=== PATIENT | male | born 1975 | race African-American/Black ===

== ENCOUNTER 2018-07-18 14:36 | Emergency (ER) | payer OTHER ==
[~2018-07-18] VITALS: Ht 157.5 cm; Wt 59.0 kg
[2018-07-18] MEDS ORDERED: Ketorolac 30mg Inj IV ONE (14:45)
[2018-07-18] MEDS ORDERED: Tetanus/Diptheria/Pertussis IM ONE (14:45)
[2018-07-18] MEDS ORDERED: Neosporin Oint Ud Pkt TOP ONE (14:45)
--- NOTE | 2018-07-18 14:51 | Emergency Room Report ---
History of Present Illness General Chief Complaint: Pain Source: Patient, EMS Present Illness HPI Patient had a syncopal episode yesterday. Apparently there was no seizure activity. He hit his head in the forehead. He states that friends of his had to carry him upstairs. He initially denied alcohol but then admitted to drinking alcohol. He is not sure when his last tetanus shot was. He's complaining about pain in his neck on the right-hand side and also in his head. He's been taking ibuprofen. He denies pain in the rest of his body. The patient complains also of having intermittent swelling that he has seen his doctors about. This can occur in his tongue or his right eye. It doesn't seem to be related to exposure to substances or foods that he's ingested. There is no current diagnosis for the swelling. He denies having swelling at this time. There is some swelling at the top of his head where he hit his head yesterday. He denies chest pain, palpitations, swelling of his ankles or calf pain. He also denies nausea vomiting diarrhea dysuria. Allergies: Coded Allergies: No Known Allergies (Unverified , 07/18/18) Patient History Past Medical History: see triage record Social History: Reports: smoking, alcohol use Social History Narrative from home Reviewed Nursing Documentation: PMH: Agreed; PSxH: Agreed Review of Systems All Other Systems: negative except mentioned in HPI Physical Exam Vital Signs Date Time Temp Pulse Resp B/P (MAP) Pulse Ox O2 Delivery O2 Flow Rate FiO2 07/18/18 14:30 98.8 86 16 113/71 (85) 99 Sp02 EP Interpretation: reviewed, normal General Appearance: well appearing, no apparent distress, GCS 15 Head: normocephalic, other - Abrasion and hematoma forehead Eyes: bilateral eye normal inspection, bilateral eye PERRL, bilateral eye EOMI ENT: moist mucus membranes - No lingual macerations o Neck: supple Respiratory: chest non-tender, lungs clear, normal breath sounds Cardiovascular #1: regular rate, rhythm Cardiovascular #2: 2+ radial (R) Gastrointestinal: normal inspection, normal bowel sounds, non tender, no mass, non-distended Musculoskeletal: back normal, normal range of motion, no calf tenderness Neurologic: alert, oriented x3, shaft tender III-XII nml as tested, motor strength/tone normal, DTRs symmetric, sensory intact, cerebellar normal, normal gait, speech normal Psychiatric: mood/affect normal Skin: warm/dry, abrasions - Forehead, hematoma - Forehead Medical Decision Making Diagnostic Impression: Primary Impression: Syncope Qualified Codes: R55 - Syncope and collapse Additional Impressions: Head trauma Qualified Codes: S09.90XA - Unspecified injury of head, initial encounter Neck sprain Qualified Codes: S13.9XXA - Sprain of joints and ligaments of unspecified parts of neck, initial encounter Hypokalemia ER Course Patient presents post syncopal episode with head trauma possibly related to alcohol yesterday. Differential includes acute myocardial infarction, arrhythmia, alcohol abuse, electrolyte imbalance, head bleed, head contusion, neck strain, neck fracture amongst others. Patient will be evaluated with EKG, chest x-ray and CT of the head and neck along with labs. The patient will be treated with IV Toradol, tetanus and Neosporin. EKG without injury. Chest x-ray normal. CT head and neck without acute injury. Labs significant for positive blood alcohol. Blood glucose 199. Potassium 3.0. Patient improved with Toradol. Potassium given orally. Discussed with patient contribution of alcohol. Also discussed treatment plan and the need for follow-up with his own doctor. Patient stable for outpatient observation and treatment. Labs Test 07/18/18 15:15 07/18/18 15:40 White Blood Count 3.1 K/UL (4.8-10.8) Red Blood Count 4.77 M/UL (4.70-6.10) Hemoglobin 13.0 G/DL (14.2-18.0) Hematocrit 39.5 % (42.0-52.0) Mean Corpuscular Volume 83 FL (80-99) Mean Corpuscular Hemoglobin 27.2 PG (27.0-31.0) Mean Corpuscular Hemoglobin Concent 32.8 G/DL (32.0-36.0) Red Cell Distribution Width 14.3 % (11.6-14.8) Platelet Count 291 K/UL (150-450) Mean Platelet Volume 4.9 FL (6.5-10.1) Neutrophils (%) (Auto) % (45.0-75.0) Lymphocytes (%) (Auto) % (20.0-45.0) Monocytes (%) (Auto) % (1.0-10.0) Eosinophils (%) (Auto) % (0.0-3.0) Basophils (%) (Auto) % (0.0-2.0) Differential Total Cells Counted 100 Neutrophils % (Manual) 53 % (45-75) Lymphocytes % (Manual) 32 % (20-45) Monocytes % (Manual) 8 % (1-10) Eosinophils % (Manual) 5 % (0-3) Basophils % (Manual) 2 % (0-2) Band Neutrophils 0 % (0-8) Platelet Estimate Adequate Platelet Morphology Normal Red Blood Cell Morphology Normal Prothrombin Time 9.7 SEC (9.30-11.50) Prothromb Time International Ratio 0.9 (0.9-1.1) Activated Partial Thromboplast Time 25 SEC (23-33) Sodium Level 147 MMOL/L (136-145) Potassium Level 3.0 MMOL/L (3.5-5.1) Chloride Level 103 MMOL/L (98-107) Carbon Dioxide Level 30 MMOL/L (21-32) Anion Gap 14 mmol/L (5-15) Blood Urea Nitrogen 11 mg/dL (7-18) Creatinine 1.0 MG/DL (0.55-1.30) Estimat Glomerular Filtration Rate > 60 mL/min (>60) Glucose Level 199 MG/DL (74-106) Calcium Level 8.7 MG/DL (8.5-10.1) Total Bilirubin 0.5 MG/DL (0.2-1.0) Aspartate Amino Transf (AST/SGOT) 96 U/L (15-37) Alanine Aminotransferase (ALT/SGPT) 65 U/L (12-78) Alkaline Phosphatase 92 U/L (46-116) Total Protein 7.4 G/DL (6.4-8.2) Albumin 3.9 G/DL (3.4-5.0) Globulin 3.5 g/dL Albumin/Globulin Ratio 1.1 (1.0-2.7) Serum Alcohol 209 mg/dL Urine Color Yellow Urine Appearance Clear Urine pH 6 (4.5-8.0) Urine Specific [place] 1.020 (1.005-1.035) Urine Protein 2+ (NEGATIVE) Urine Glucose (UA) 2+ (NEGATIVE) Urine Ketones 1+ (NEGATIVE) Urine Blood Negative (NEGATIVE) Urine Nitrite Negative (NEGATIVE) Urine Bilirubin Negative (NEGATIVE) Urine Urobilinogen 8 MG/DL (0.0-1.0) Urine Leukocyte Esterase Negative (NEGATIVE) Urine RBC 0-2 /HPF (0 - 0) Urine WBC 2-4 /HPF (0 - 0) Urine Squamous Epithelial Cells None /LPF (NONE/OCC) Urine Bacteria Few /HPF (NONE) Urine Opiates Screen Negative (NEGATIVE) Urine Barbiturates Screen Negative (NEGATIVE) Phencyclidine (PCP) Screen Negative (NEGATIVE) Urine Amphetamines Screen Negative (NEGATIVE) Urine Benzodiazepines Screen Negative (NEGATIVE) Urine Cocaine Screen Negative (NEGATIVE) Urine Marijuana (THC) Screen Negative (NEGATIVE) EKG Diagnostic Results Rate: normal ST Segments: no acute changes - Positive U waves Rhythm Strip Diag. Results EP Interpretation: yes Rhythm: NSR, no PVC's, no ectopy Last Vital Signs Date Time Temp Pulse Resp B/P (MAP) Pulse Ox O2 Delivery O2 Flow Rate FiO2 07/18/18 17:04 98.8 81 16 126/81 99 Room Air Status: improved Disposition: HOME, SELF-CARE Condition: Improved Scripts Bacitracin (Bacitracin) 28.4 Gm Oint...g. 1 APPLIC TOPIC BID, #20 GM Prov: Adria Smith MD 07/18/18 Adria Smith MD Jul 18, 2018 14:51
[2018-07-18 15:37] LABS: HEMATOCRIT 39.5 % (42.0-52.0); MEAN CORPUSCULAR VOLUME 83 FL (80-99); PLATELET COUNT 291 K/UL (150-450); RED BLOOD COUNT 4.77 M/UL (4.70-6.10); RED CELL DISTRIBUTION WIDTH 14.3 % (11.6-14.8); WHITE BLOOD COUNT 3.1 K/UL (4.8-10.8)
--- NOTE | 2018-07-18 15:39 | Diagnostic Imaging Report ---
EXAM: CT Head Without Intravenous Contrast CLINICAL HISTORY: TRAUMA TECHNIQUE: Axial computed tomography images of the head/brain without intravenous contrast. CTDI is 70.38 mGy and DLP is 1397 mGy-cm. One or more of the following dose reduction techniques were used: automated exposure control, adjustment of the mA and/or kV according to patient size, use of iterative reconstruction technique. COMPARISON: No relevant prior studies available. FINDINGS: Brain: No hemorrhage. No edema. Ventricles: No ventriculomegaly. Bones/joints: No acute fracture. Soft tissues: Unremarkable. Sinuses: No acute sinusitis. Mastoid air cells: No mastoid effusion. IMPRESSION: No acute intracranial process.
[2018-07-18 15:47] LABS: INR 0.9 (0.9-1.1)
[2018-07-18 15:51] LABS: ALANINE AMINOTRANSFERASE 65 U/L (12-78); ALBUMIN 3.9 G/DL (3.4-5.0); ALBUMIN/GLOBULIN RATIO 1.1 (1.0-2.7); ALKALINE PHOSPHATASE 92 U/L (46-116); ANION GAP 14 mmol/L (5-15); ASPARTATE AMINO TRANSFERASE 96 U/L (15-37); BILIRUBIN,TOTAL 0.5 MG/DL (0.2-1.0); BLOOD UREA NITROGEN 11 mg/dL (7-18); CALCIUM 8.7 MG/DL (8.5-10.1); CARBON DIOXIDE 30 MMOL/L (21-32); CHLORIDE 103 MMOL/L (98-107); SODIUM 147 MMOL/L (136-145)
--- NOTE | 2018-07-18 15:55 | NUR ---
ED Nurse Note: pt. was [place] from police station with c/o multiple falls with head injury,general body pain, possible ETOH
[2018-07-18 15:59] LABS: APPEARANCE,URINE CLEAR; BILIRUBIN, URINE NEGATIVE (NEGATIVE); GLUCOSE, URINE (UA) 2+ (NEGATIVE); KETONES,URINE 1+ (NEGATIVE); LEUKOCYTE ESTERASE ,URINE NEGATIVE (NEGATIVE); NITRITE,URINE NEGATIVE (NEGATIVE); PH,URINE 6 (4.5-8.0); PROTEIN,URINE 2+ (NEGATIVE); UROBILINOGEN,URINE 8 MG/DL (0.0-1.0)
[2018-07-18 16:08] LABS: COLOR,URINE YELLOW
--- NOTE | 2018-07-18 16:11 | Diagnostic Imaging Report ---
EXAM: CT Cervical Spine Without Intravenous Contrast CLINICAL HISTORY: TRAUMA TECHNIQUE: Axial computed tomography images of the cervical spine without intravenous contrast. CTDI is 14.24 mGy and DLP is 318 mGy-cm. One or more of the following dose reduction techniques were used: automated exposure control, adjustment of the mA and/or kV according to patient size, use of iterative reconstruction technique. COMPARISON: No relevant prior studies available. FINDINGS: Vertebrae: No acute fracture or destructive changes. Degenerative changes. Discs/spinal canal/neural foramina: No acute process. Degenerative changes. Soft tissues: Unremarkable. IMPRESSION: No fracture or malalignment.
[2018-07-18 16:41] VITALS: BP 126/81
[2018-07-18] MEDS ORDERED: BACITRACIN15 GM TOPIC (16:44)
[2018-07-18 17:04] VITALS: BP 126/81
--- NOTE | 2018-07-18 17:05 | NUR ---
ER DISCHARGE NOTE: Patient is cleared to be discharged per ERMD, pt is aox4, on room air, with stable vital signs. pt was given dc and prescription instructions, pt was able to verbalize understanding, pt id band and iv site removed without complications. pt is able to ambulate with steady gait. pt took all belongings.
--- NOTE | 2018-07-28 14:21 | Cardiology Report ---
APPROVED REPORT EKG Measurement Heart [id number] Normal sinus rhythm Normal ECG
== END 2018-07-18 17:04 | disposition home or self-care (01) ==
LOC: EDBD 14:36 → EMR 15:05
DX: S13.9XXA Sprain of joints and ligaments of unspecified parts of neck, initial encounter (principal); S00.91XA Abrasion of unspecified part of head, initial encounter; E87.6 Hypokalemia; R55 Syncope and collapse; F17.200 Nicotine dependence, unspecified, uncomplicated; F10.10 Alcohol abuse, uncomplicated; Z23 Encounter for immunization; W18.39XA Other fall on same level, initial encounter; Y92.9 Unspecified place or not applicable
CPT/HCPCS: 36415; 70450; 72125; 80053; 80307; 80329; 81001; 85007; 85025; 85610; 85730; 90471; 90715; 93005; 96374; 99284; J1885; J8499

== ENCOUNTER 2019-03-11 16:13 | Emergency (ER) | payer OTHER ==
[~2019-03-11] VITALS: Ht 170.2 cm; Wt 72.6 kg
[~2019-03-11 16:13] MED LIST: BACITRACIN15 GM TOPIC
[2019-03-11 16:20] VITALS: BP 97/57
[2019-03-11 16:40] LABS: BASOPHILS % (AUTO) 1.4 % (0.0-2.0); EOSINOPHILS % (AUTO) 5.2 % (0.0-3.0); HEMOGLOBIN 12.9 G/DL (14.2-18.0); LYMPHOCYTES % (AUTO) 32.1 % (20.0-45.0); MEAN CORPUSCULAR VOLUME 86 FL (80-99); MONOCYTES % (AUTO) 11.6 % (1.0-10.0); NEUTROPHILS % (AUTO) 49.7 % (45.0-75.0); PLATELET COUNT 266 K/UL (150-450); RED BLOOD COUNT 4.51 M/UL (4.70-6.10); RED CELL DISTRIBUTION WIDTH 14.1 % (11.6-14.8); WHITE BLOOD COUNT 5.6 K/UL (4.8-10.8)
[2019-03-11 16:50] LABS: ANION GAP 11 mmol/L (5-15); BLOOD UREA NITROGEN 17 mg/dL (7-18); CALCIUM 8.5 MG/DL (8.5-10.1); CARBON DIOXIDE 26 MMOL/L (21-32); CHLORIDE 108 MMOL/L (98-107); CREATININE 1.5 MG/DL (0.55-1.30); POTASSIUM 4.2 MMOL/L (3.5-5.1); SODIUM 145 MMOL/L (136-145)
[2019-03-11 17:02] LABS: ALANINE AMINOTRANSFERASE 95 U/L (12-78); ALBUMIN 4.1 G/DL (3.4-5.0); ALBUMIN/GLOBULIN RATIO 1.2 (1.0-2.7); ALKALINE PHOSPHATASE 72 U/L (46-116); ASPARTATE AMINO TRANSFERASE 80 U/L (15-37); BILIRUBIN,TOTAL 0.4 MG/DL (0.2-1.0)
[2019-03-11 17:05] VITALS: BP 101/68
[2019-03-11 18:00] VITALS: BP 110/72
--- NOTE | 2019-03-13 08:27 | Emergency Room Report ---
History of Present Illness General Chief Complaint: Syncope Source: Patient, EMS Present Illness HPI Is a 43-year-old male brought in by EMS after a possible syncopal episode. Patient had been found lying on the street. He reports recent alcohol intake. A prior history of psychiatric disease. He denies any current complaints. Patient reports being a cigarette smoker. Denies any fever. Denies any vomiting or diarrhea. Allergies: Coded Allergies: No Known Allergies (Unverified , 07/18/18) Patient History Reviewed Nursing Documentation: PMH: Agreed; PSxH: Agreed Nursing Documentation-PMH Past Medical History: No Stated History Review of Systems All Other Systems: negative except mentioned in HPI Physical Exam Vital Signs Date Time Temp Pulse Resp B/P (MAP) Pulse Ox O2 Delivery O2 Flow Rate FiO2 03/11/19 16:15 97.2 77 16 97/57 (70) 99 Room Air Sp02 EP Interpretation: reviewed, normal General Appearance: normal inspection, well appearing, no apparent distress, alert, GCS 15 Head: atraumatic ENT: normal ENT inspection, hearing grossly normal, normal voice Neck: normal inspection, full range of motion, supple, no bony tend Respiratory: normal inspection, lungs clear, normal breath sounds, no respiratory distress, no retraction, no wheezing Cardiovascular #1: regular rate, rhythm, no edema Gastrointestinal: normal inspection, normal bowel sounds, non tender, soft, no guarding, no hernia Genitourinary: no CVA tenderness Musculoskeletal: normal inspection, back normal, normal range of motion Neurologic: alert, motor strength/tone normal, parish visitor III-XII nml as tested, responsive, speech normal, normal inspection Psychiatric: normal inspection, judgement/insight normal, mood/affect normal Medical Decision Making Diagnostic Impression: Primary Impression: Alcohol abuse Additional Impression: Syncope ER Course Patient presented for possible syncope. Differential diagnosis include was not limited to substance abuse, alcohol intoxication, seizure among others. CT imaging of the head was ordered due to patient's recent syncopal episode and poor historian. CT imaging showed no evidence of acute intracranial hemorrhage. Patient's laboratory testing was unremarkable. EKG interpreted by me showed normal sinus rhythm without acute ST or T wave changes. Patient was noted to be ambulatory without assistance. Did not appear to be psychotic. Denies any suicidal intentions or auditory hallucinations. Patient noted to have improvement in his blood pressure. Patient subsequently eloped without notifying staff prior to discharge. Labs Test 1/23/20 16:18 White Blood Count 5.6 K/UL (4.8-10.8) Red Blood Count 4.51 M/UL (4.70-6.10) Hemoglobin 12.9 G/DL (14.2-18.0) Hematocrit 39.0 % (42.0-52.0) Mean Corpuscular Volume 86 FL (80-99) Mean Corpuscular Hemoglobin 28.6 PG (27.0-31.0) Mean Corpuscular Hemoglobin Concent 33.1 G/DL (32.0-36.0) Red Cell Distribution Width 14.1 % (11.6-14.8) Platelet Count 266 K/UL (150-450) Mean Platelet Volume 6.2 FL (6.5-10.1) Neutrophils (%) (Auto) 49.7 % (45.0-75.0) Lymphocytes (%) (Auto) 32.1 % (20.0-45.0) Monocytes (%) (Auto) 11.6 % (1.0-10.0) Eosinophils (%) (Auto) 5.2 % (0.0-3.0) Basophils (%) (Auto) 1.4 % (0.0-2.0) Sodium Level 145 MMOL/L (136-145) Potassium Level 4.2 MMOL/L (3.5-5.1) Chloride Level 108 MMOL/L (98-107) Carbon Dioxide Level 26 MMOL/L (21-32) Anion Gap 11 mmol/L (5-15) Blood Urea Nitrogen 17 mg/dL (7-18) Creatinine 1.5 MG/DL (0.55-1.30) Estimat Glomerular Filtration Rate > 60 mL/min (>60) Glucose Level 98 MG/DL (74-106) Calcium Level 8.5 MG/DL (8.5-10.1) Total Bilirubin 0.4 MG/DL (0.2-1.0) Aspartate Amino Transf (AST/SGOT) 80 U/L (15-37) Alanine Aminotransferase (ALT/SGPT) 95 U/L (12-78) Alkaline Phosphatase 72 U/L (46-116) Troponin I 0.000 ng/mL (0.000-0.056) Total Protein 7.4 G/DL (6.4-8.2) Albumin 4.1 G/DL (3.4-5.0) Globulin 3.3 g/dL Albumin/Globulin Ratio 1.2 (1.0-2.7) Last Vital Signs Date Time Temp Pulse Resp B/P (MAP) Pulse Ox O2 Delivery O2 Flow Rate FiO2 03/11/19 18:00 97.2 78 22 110/72 100 Room Air Status: improved Disposition: ELOPED Condition: Stable Referrals: [facility],REFERRING (PCP) Patient Instructions: Alcohol Abuse and Nutrition Ashvin Doan MD Mar 13, 2019 08:27
== END 2019-03-11 23:00 | disposition left against medical advice (07) ==
LOC: EDBD 16:13 → EDUNIT# 16:13 → EMR 17:40
DX: F10.10 Alcohol abuse, uncomplicated (principal); Y90.9 Presence of alcohol in blood, level not specified; R55 Syncope and collapse; F17.200 Nicotine dependence, unspecified, uncomplicated; Z53.29 Procedure and treatment not carried out because of patient's decision for other reasons
CPT/HCPCS: 36415; 80053; 84484; 85025; 93005; 96360; J7030; Z7502; 99284

== ENCOUNTER 2019-10-30 18:00 | Emergency (ER) | payer OTHER ==
[~2019-10-30] VITALS: Ht 167.6 cm; Wt 72.6 kg
[2019-10-30 18:13] LABS: APPEARANCE,URINE CLEAR; BILIRUBIN, URINE NEGATIVE (NEGATIVE); COLOR,URINE PALE YELLOW; GLUCOSE, URINE (UA) NEGATIVE (NEGATIVE); KETONES,URINE NEGATIVE (NEGATIVE); LEUKOCYTE ESTERASE ,URINE NEGATIVE (NEGATIVE); NITRITE,URINE NEGATIVE (NEGATIVE); PH,URINE 7 (4.5-8.0); PROTEIN,URINE NEGATIVE (NEGATIVE); UROBILINOGEN,URINE NORMAL MG/DL (0.0-1.0)
[2019-10-30 18:15] VITALS: BP 152/94
[2019-10-30] MEDS ORDERED: LORazepam Inj 2mg/ml 1ml IV ONE (18:15)
[2019-10-30 18:36] LABS: BASOPHILS % (AUTO) 1.5 % (0.0-2.0); EOSINOPHILS % (AUTO) 5.6 % (0.0-3.0); HEMATOCRIT 42.9 % (42.0-52.0); HEMOGLOBIN 13.2 G/DL (14.2-18.0); LYMPHOCYTES % (AUTO) 31.6 % (20.0-45.0); MEAN CORPUSCULAR VOLUME 89 FL (80-99); MONOCYTES % (AUTO) 5.6 % (1.0-10.0); NEUTROPHILS % (AUTO) 55.8 % (45.0-75.0); PLATELET COUNT 210 K/UL (150-450); RED BLOOD COUNT 4.83 M/UL (4.70-6.10); RED CELL DISTRIBUTION WIDTH 15.9 % (11.6-14.8); WHITE BLOOD COUNT 5.4 K/UL (4.8-10.8)
[2019-10-30 18:53] LABS: ANION GAP 11 mmol/L (5-15); BLOOD UREA NITROGEN 15 mg/dL (7-18); CALCIUM 10.1 MG/DL (8.5-10.1); CARBON DIOXIDE 30 MMOL/L (21-32); CHLORIDE 107 MMOL/L (98-107); CREATININE 0.9 MG/DL (0.55-1.30); POTASSIUM 4.3 MMOL/L (3.5-5.1); SODIUM 148 MMOL/L (136-145)
[2019-10-30 19:01] LABS: ALANINE AMINOTRANSFERASE 37 U/L (12-78); ALBUMIN 4.7 G/DL (3.4-5.0); ALBUMIN/GLOBULIN RATIO 1.1 (1.0-2.7); ALKALINE PHOSPHATASE 102 U/L (46-116); ASPARTATE AMINO TRANSFERASE 67 U/L (15-37); BILIRUBIN,TOTAL 0.5 MG/DL (0.2-1.0)
[2019-10-30 20:15] VITALS: BP 135/71
--- NOTE | 2019-10-30 20:15 | Emergency Room Report ---
History of Present Illness General Chief Complaint: Alcohol Intoxication Present Illness HPI 43-year-old male with no known segment past medical history brought in by paramedics due to alcohol intoxication from the street. Patient reports that she fell and hit his head however does not recall whether he lost consciousness or not however later denies that he fell. Denies any dizziness and headache. Denies any chest pain shortness of breath. Denies any drug use. Appears to be pacing the hallways of the ER, and had to be redirected to go back to the room. Patient also takes all his clothes off. Refuses to get head CT scan. No signs of encephalopathy noted. Patient is speaking full sentences. Patient has not vomited in ED. denies abdominal pain, nausea vomiting diarrhea. Denies cough and congestion. Allergies: Coded Allergies: No Known Allergies (Unverified , 07/18/18) UNABLE TO ASSESS (Unverified , 10/30/19) COVID-19 Screening Contact w/high risk pt: No Experienced COVID-19 symptoms?: No COVID-19 Testing performed [place]: No Patient History Past Medical History: see triage record Past Surgical History: unable to obtain Pertinent Family History: unable to obtain Social History: Reports: alcohol use Immunizations: UTD Reviewed Nursing Documentation: PMH: Agreed; PSxH: Agreed Review of Systems All Other Systems: negative except mentioned in HPI Physical Exam Vital Signs Date Time Temp Pulse Resp B/P (MAP) Pulse Ox O2 Delivery O2 Flow Rate FiO2 10/30/19 17:56 97.7 97 16 160/100 (120) 95 Room Air 10/30/19 18:15 98 Sp02 EP Interpretation: reviewed, normal General Appearance: no apparent distress, alert, GCS 15, non-toxic, thin Head: normocephalic, atraumatic Eyes: bilateral eye normal inspection, bilateral eye PERRL ENT: hearing grossly normal, normal pharynx, no angioedema, normal voice Neck: full range of motion, supple/symm/no masses Respiratory: chest non-tender, lungs clear, normal breath sounds, no rhonchi, no respiratory distress, no retraction, speaking full sentences Cardiovascular #1: regular rate, rhythm, no edema Cardiovascular #2: 2+ carotid (R), 2+ carotid (L) Gastrointestinal: normal bowel sounds, non tender, soft, non-distended, no guarding, no rebound Rectal: deferred Genitourinary: no CVA tenderness Musculoskeletal: back normal Neurologic: alert, oriented Psychiatric: memory normal Skin: no rash Lymphatic: no adenopathy Medical Decision Making PA Attestation All my diagnosis and treatment plans were reviewed ad discussed with my supervising physician Dr. Doan Diagnostic Impression: Primary Impression: Alcohol abuse ER Course 43-year-old male with no known segment past medical history brought in by paramedics due to alcohol intoxication from the street. Patient reports that she fell and hit his head however does not recall whether he lost consciousness or not however later denies that he fell. Denies any dizziness and headache. Denies any chest pain shortness of breath. Denies any drug use. Appears to be pacing the hallways of the ER, and had to be redirected to go back to the room. Patient also takes all his clothes off. Refuses to get head CT scan. No signs of encephalopathy noted. Patient is speaking full sentences. Patient has not vomited in ED. denies abdominal pain, nausea vomiting diarrhea. Denies cough and congestion. Ddx considered but are not limited to: Alcohol intoxication with altered level of consciousness, alcohol intoxication causing pancreatitis, alcohol abuse, multi drug use and alcohol intoxication Vital signs: are WNL, pt. is afebrile H&PE are most consistent with: Alcohol abuse Had to cancel head CT as patient was uncooperative however head appears to be atraumatic and patient later reported that fall or injury. Also patient refused head CT. ORDERS: CBC, CMP, UA, troponin, tox screen, first I ordered EtOH level however patient uncooperative blood work out of the ED, I consulted with my supervising physician Dr. Doan treat patient for potential alcohol abuse however EtOH level is not needed as patient was very uncooperative. ER intervention: Ativan IM, NS bolus, Zofran, Pepcid DISCHARGE: At this time pt. is stable for d/c to home. Will provide printed patient care instructions, and any necessary prescriptions. Care plan and follow up instructions have been discussed with the patient prior to discharge. After being observed for 2 hours patient was advised to walk in a straight line, speaking full sentences, remember his name, his address, and is able to be discharged. Patient admitted drinking alcohol and reported that he feels better now. Patient was advised to continue drinking water and increase oral hydration. If worsening symptoms return to the emergency room Last Vital Signs Date Time Temp Pulse Resp B/P (MAP) Pulse Ox O2 Delivery O2 Flow Rate FiO2 10/30/19 18:44 98 16 122/68 99 10/30/19 18:15 Room Air 98 10/30/19 18:15 97.7 Disposition: HOME, SELF-CARE Condition: Stable Referrals: NON PHYSICIAN (PCP) Patient Instructions: Alcohol Abuse and Nutrition Nuria Ferrari Oct 30, 2019 20:15
== END 2019-10-30 20:15 | disposition home or self-care (01) ==
LOC: EDBD 18:00 → EMR 19:19
DX: F10.129 Alcohol abuse with intoxication, unspecified (principal)
CPT/HCPCS: 36415; 80053; 80307; 81003; 84484; 85025; 96361; 96374; 96375; J2405; J7030; S0028; Z7502; 99284